=== PATIENT | male | born 1965 | race Two or more races ===

== ENCOUNTER 2019-06-09 14:20 | Emergency (ER) | payer BC ==
[~2019-06-09] VITALS: Ht 188 cm; Wt 104.3 kg
--- NOTE | 2019-06-09 14:26 | NUR ---
COUGH, CONGESTION, FEVER, AND BODY ACHES X 1 WEEK EXPOSURE TO FRIEND POSITIVE FOR COVID-19, pt aaox4, -sob, taken to bed 5, vss, nad noted, pending md sousa
--- NOTE | 2019-06-09 15:10 | NUR ---
REPORTED CASE TO [facility] AND [facility]BDULKADIR AT [facility] [phone] FOR POSSIBLE COVID. [facility] WILL CALL BACK
[2019-06-09 16:00] VITALS: BP 149/90
--- NOTE | 2019-06-09 16:00 | NUR ---
Patient discharged to home in stable condition. Written and verbal after care instructions given. Patient verbalizes understanding of instruction.
--- NOTE | 2019-06-09 17:09 | NUR ---
covid nasal and oral swabs sent to main lab
== END 2019-06-09 17:13 | disposition home or self-care (01) ==
LOC: ER 14:20
DX: J06.9 Acute upper respiratory infection, unspecified (principal); Z87.442 Personal history of urinary calculi; Z60.2 Problems related to living alone